=== PATIENT | male | born 1975 | race American Indian/Alaskan Native ===

== ENCOUNTER 2016-09-13 13:02 | Day surgery (SDC) | payer OTHER ==
[~2016-09-13 13:02] MED LIST: ANCEF/STERILE WATER 2 GM/20 ML 20 ML IV SCH; ceFAZolin 2 GM in NACL 0.9% 100 ML IV NR
--- NOTE | 2016-09-13 13:57 | Anesthesia Day of Surgery ---
Anesthesia Day of Surgery - Day of Surgery Patient Examined: Yes Patient H&P Reviewed: Yes Patient is NPO: Yes
--- NOTE | 2016-09-13 13:57 | Anesthesia Consultation ---
Anesthesia Consult and Med Hx Date of service: 09/13/16 - Airway Anesthetic Teeth Evaluation: Good ROM Head & Neck: Adequate Mental/Hyoid Distance: Adequate Mallampati Class: Class II Intubation Access Assessment: Probably Good - Pulmonary Exam CTA: Yes - Cardiac Exam Cardiac Exam: RRR - Pre-Operative Health Status ASA Pre-Surgery Classification: ASA1 Proposed Anesthetic Plan: General - Pulmonary Hx Smoking: No Hx Sleep Apnea: No - Central Nervous System Hx Psychiatric Problems: No - Other Systems Hx Cancer: No
[2016-09-13] MEDS ORDERED: VERSED IV NR (14:00)
[2016-09-13] MEDS ORDERED: NACL 0.9% 1000 ML 1,000 ML IV SCH (14:00)
[2016-09-13] MEDS ORDERED: SUBLIMAZE ONE (14:39)
[2016-09-13] MEDS ORDERED: DIPRIVAN 10 MG/ML 100 ML IV ONE (15:12)
[2016-09-13] MEDS ORDERED: XYLOCAINE 1%/ EPI 1:100,000 INFILTRATI ONE (15:48)
[2016-09-13] MEDS ORDERED: NACL 0.9% IR ONE (15:48)
[2016-09-13] MEDS ORDERED: MARCAINE 0.25% INFILTRATI ONE (15:48)
[2016-09-13] MEDS ORDERED: XYLOCAINE MPF 2% ONE (16:04)
--- NOTE | 2016-09-13 16:43 | Post Operative Note ---
Pre-op diagnosis: Multiple neurofibromatosis face, abd wall, left forearm Post-op diagnosis: same Findings: forehead - 2 lesiosn: 5 mm each Abd wall - 2 lesions 2.5 cm each Left forearm - 2 lesions 2 cm each Procedure: Excisionmutiple neuro fibroma face, antr abd wall, left forearm Anesthesia: GETA Surgeon: ERASMO ORTEGA Application Architect Manager: CHARLOTTE POP Estimated blood loss: minimal Pathology: list (neurofibroma x 6) Specimen disposition: to lab Condition: stable Disposition: PACU
--- NOTE | 2016-09-13 16:45 | Discharge Summary ---
Short Stay Discharge Plan Weight Bearing Status: Full Weight Bearing Diet: regular Wound: open to air, change dressing (from abd wall on 09/15, shower daily ) Prescriptions: HYDROcodone/APAP 5-325 [Badger 5-325 mg TAB] 1 each PO Q6HR PRN #20 tablet PRN Reason: Pain
[2016-09-13 18:40] VITALS: BP 114/74
--- NOTE | 2016-09-13 21:20 | Operative Report ---
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 OPERATIVE PROCEDURE: 1. Excision of two neurofibroma, left distal forearm. 2. Excision of two neurofibromas, anterior abdominal wall. 3. Excision of two smaller neurofibroma of the forehead described below. INDICATIONS: A 41-year-old male patient with numerous neurofibromatosis involving the trunk, extremities and the forehead. He is presenting with symptomatic neurofibroma involving the distal forearm lesions and the abdominal wall lesions. In the forehead, he has 2 lesions, he is unable to wear the hat as person and requests these to be removed. FINDINGS: 1. Left distal forearm 2 to 2.5 cm neurofibroma in the volar aspect in the mid distal forearm just above the wrist. 2. The same size lesion on the radial aspect. 3. Abdominal wall, 2 neurofibromata in the anterior abdominal wall, 1 below and to the right side of the umbilicus measuring 3 cm x 2.5 cm, the other neurofibroma just inferior to the umbilicus measuring 3 cm x 2.5 cm. 4. Forehead lesions, two of them measuring 5-7 mm, one located to the right side of the forehead just above the eyebrow and the other close to the hair line on the left side measuring 5 mm. All lesions were independently marked sent in separate cups for histopathological evaluation. PROCEDURE: After IV sedation, the left forearm and the anterior abdominal wall areas were prepped and draped at one time. The abdominal wall lesions were excised first, after infiltrating local anesthetic with Marcaine and lidocaine. An elliptical incision was made including the skin overlying the lesion and the lesions were completely removed and closed in 2 layers with 3-0 Vicryl and 4-0 Monocryl sutures and covered with Steri-Strips and bandage. The forearm lesions were likewise resected and closed, but covered with dry gel. These drapes were removed. Eyes are protected. Oxygen was removed and the forehead lesions were prepped with Betadine solution without any alcohol and both were removed in an elliptical incision using local anesthetic and closed in 2 layers with 3-0 and 4-0 Monocryl sutures. Negligible blood loss in dissection of all these lesions. He tolerated the procedure well. JOB# [id number] DULCE MARIA/LARY
== END 2016-09-13 13:03 | disposition home or self-care (01) ==
LOC: OR 13:02
PROVIDERS: ATTEND Surgery
DX: Q85.00 Neurofibromatosis, unspecified (principal); Z80.3 Family history of malignant neoplasm of breast; Z80.42 Family history of malignant neoplasm of prostate
CPT/HCPCS: 11403; 11440; 88305; 88341; 88342; J0690; J2250; J2704; J3010; J7030; 88307